=== PATIENT | female | born 1960 | race Caucasian/White ===

== ENCOUNTER 2020-02-08 08:45 | Outpatient (CLI) | payer OTHER ==
--- NOTE | 2020-02-08 11:32 | RAD ---
TWO VIEW CHEST: HISTORY: Dyspnea. COMPARISON: 04/24/2016. FINDINGS: Lung trimble are clear. Heart and mediastinum appear normal. Vasculature normal. Calcified granulom a in the peripheral right lung base stable. Osseous structures unremarkable with postoperative garcia es at both shoulders. IMPRESSION: No acute process. POS: [facility]
== END 2020-02-08 08:46 | disposition home or self-care (01) ==
LOC: BICRAD 08:45
PROVIDERS: ATTEND Internal Medicine Critical Care Medicine
DX: R06.00 Dyspnea, unspecified (principal)
CPT/HCPCS: 71046

== ENCOUNTER 2020-05-16 08:30 | Outpatient (CLI) | payer BC | END 2020-05-16 08:31 | disposition home or self-care (01) | LOC: SLEEPLAB 08:30 | PROVIDERS: ATTEND Internal Medicine Critical Care Medicine | DX: G47.33 Obstructive sleep apnea (adult) (pediatric) (principal); F41.9 Anxiety disorder, unspecified; R06.83 Snoring; G47.00 Insomnia, unspecified | CPT/HCPCS: 95806 ==

== ENCOUNTER 2020-06-29 09:17 | Outpatient (CLI) | payer BC | END 2020-06-29 09:18 | disposition home or self-care (01) | LOC: SCSMRI 09:17 | PROVIDERS: ATTEND Neurological Surgery | DX: M48.062 Spinal stenosis, lumbar region with neurogenic claudication (principal); M43.16 Spondylolisthesis, lumbar region; M47.816 Spondylosis without myelopathy or radiculopathy, lumbar region; M51.36 Other intervertebral disc degeneration, lumbar region | CPT/HCPCS: 72100; 72148 ==

== ENCOUNTER 2020-08-22 12:46 | Outpatient (CLI) | payer BC | END 2020-08-22 12:47 | disposition home or self-care (01) | LOC: TBSIIMAG 12:46 | PROVIDERS: ATTEND Physician Assistant | DX: M43.16 Spondylolisthesis, lumbar region (principal); Z98.1 Arthrodesis status | CPT/HCPCS: 72100 ==

== ENCOUNTER 2020-09-27 10:11 | Outpatient (CLI) | payer BC | END 2020-09-27 10:12 | disposition home or self-care (01) | LOC: TBSIIMAG 10:11 | PROVIDERS: ATTEND Neurological Surgery | DX: M48.062 Spinal stenosis, lumbar region with neurogenic claudication (principal); M51.37 Other intervertebral disc degeneration, lumbosacral region; M43.16 Spondylolisthesis, lumbar region; Z98.890 Other specified postprocedural states; M43.17 Spondylolisthesis, lumbosacral region | CPT/HCPCS: 72100 ==

== ENCOUNTER 2020-12-28 13:04 | Outpatient (CLI) | payer BC | END 2020-12-28 13:05 | disposition home or self-care (01) | LOC: TBSIIMAG 13:04 | PROVIDERS: ATTEND Neurological Surgery | DX: M43.16 Spondylolisthesis, lumbar region (principal); M47.816 Spondylosis without myelopathy or radiculopathy, lumbar region; Z98.890 Other specified postprocedural states | CPT/HCPCS: 72100 ==

== ENCOUNTER 2021-01-18 12:34 | Outpatient (CLI) | payer BC | END 2021-01-18 12:35 | disposition home or self-care (01) | LOC: TBSIIMAG 12:34 | PROVIDERS: ATTEND Neurological Surgery | DX: M54.16 Radiculopathy, lumbar region (principal); M48.061 Spinal stenosis, lumbar region without neurogenic claudication; M48.07 Spinal stenosis, lumbosacral region; Z98.890 Other specified postprocedural states | CPT/HCPCS: 72148 ==

== ENCOUNTER 2021-03-20 07:15 | Day surgery (SDC) | payer BC ==
[2021-03-19 11:57] VITALS: BMI 29.2
== END 2021-03-20 09:20 | disposition home or self-care (01) ==
LOC: RAD 07:15 → EDSTATUS 08:00 → RAD 09:20
PROVIDERS: ATTEND Neurological Surgery
PROC: B02B1ZZ Computerized Tomography (CT Scan) of Spinal Cord using Low Osmolar Contrast (ICD-10-PCS; principal; 2021-03-20)
DX: M43.16 Spondylolisthesis, lumbar region (principal); M47.26 Other spondylosis with radiculopathy, lumbar region; M47.817 Spondylosis without myelopathy or radiculopathy, lumbosacral region; M48.061 Spinal stenosis, lumbar region without neurogenic claudication; M25.78 Osteophyte, vertebrae; I87.8 Other specified disorders of veins; N20.0 Calculus of kidney; Z79.82 Long term (current) use of aspirin; Z79.899 Other long term (current) drug therapy; Z88.2 Allergy status to sulfonamides; Z98.1 Arthrodesis status
CPT/HCPCS: 62304; 72132

== ENCOUNTER 2022-12-11 08:30 | Outpatient (CLI) | payer BC | END 2022-12-11 08:31 | disposition home or self-care (01) | LOC: NM 08:30 | PROVIDERS: ATTEND Psychiatry & Neurology Neurology | DX: G20.A1 Parkinson's disease without dyskinesia, without mention of fluctuations (principal); R25.1 Tremor, unspecified | CPT/HCPCS: 78803; A9584 ==

== ENCOUNTER 2023-01-20 14:19 | Outpatient (CLI) | payer BC | END 2023-01-20 14:20 | disposition home or self-care (01) | LOC: BICMAMMO 14:19 | PROVIDERS: ATTEND Family Medicine | DX: Z12.31 Encounter for screening mammogram for malignant neoplasm of breast (principal) | CPT/HCPCS: 77063; 77067 ==